=== PATIENT | female | born 1930 | race African-American/Black ===

== ENCOUNTER 2019-02-06 15:25 | Emergency (ER) | payer OTHER ==
[~2019-02-06] VITALS: Ht 165.1 cm; Wt 70.0 kg
[2019-02-06 16:57] LABS: CHLORIDE 109 mEq/L (98-107)
[2019-02-06 16:58] LABS: BASOPHILS % 0.9 % (0.0-2.0); EOSINOPHILS % 0.9 % (0.0-5.0); HEMATOCRIT. 36.4 % (36.0-48.0); HEMOGLOBIN. 12.4 g/dL (12.0-16.0); MEAN CORPUSCULAR HEMOGLOBIN 33.2 pg (28.0-32.0); MEAN CORPUSCULAR VOLUME 97.1 fL (81.0-99.0); MEAN PLATELET VOLUME 8.3 fl (7.4-10.4); MONOCYTES % 7.9 % (2.0-8.0); NEUTROPHILS % 69.3 % (40.0-76.0); PLATELET 218 x1000/uL (130-400); RED BLOOD CELL COUNT 3.75 mill/uL (4.2-5.4); RED CELL DISTRIBUTION WIDTH 13.8 % (11.6-14.6)
[2019-02-06 16:59] LABS: INR 1.3; PROTHROMBIN TIME 13.2 sec (9.6-11.0)
[2019-02-06] MEDS ORDERED: SODIUM CHLORIDE 0.9% 1,000 ML IV NR (18:26)
[2019-02-06] MEDS ORDERED: ASPIRIN 325MG EC TABLET PO ONE (20:00)
[2019-02-06] MEDS ORDERED: CLONIDINE 0.1MG TABLET PO ONE (20:00)
[2019-02-06 22:50] VITALS: BP 136/95
[2019-02-06 22:56] LABS: CLARITY URINE CLEAR (CLEAR); COLOR URINE YELLOW (YELLOW); KETONES URINE NEGATIVE (NEGATIVE); LEUKOCYTE ESTERASE URINE TRACE (NEGATIVE); NITRITE URINE NEGATIVE (NEGATIVE); OCCULT BLOOD URINE NEGATIVE (NEGATIVE); PH URINE 6.5 (4.5-8.0); PROTEIN URINE NEGATIVE (NEGATIVE); SPECIFIC GRAVITY URINE 1.006 (1.005-1.030); UROBILINOGEN URINE 0.2 E.U./dL (0.2-1.0)
== END 2019-02-06 23:44 | disposition short-term general hospital (02) ==
LOC: ER 15:25 → CANBEDREQ 23:13 → ER 23:44
DX: R55 Syncope and collapse (principal); N28.9 Disorder of kidney and ureter, unspecified; I11.9 Hypertensive heart disease without heart failure; G20 Parkinson's disease; Z88.0 Allergy status to penicillin
CPT/HCPCS: 36415; 71045; 83605; 83880; 84484; 93005; 96360; 96361; 99291